=== PATIENT | female | born 1980 | race Caucasian/White ===

== ENCOUNTER 2017-02-13 13:21 | Observation (INO) ==
[2017-02-13] MEDS ORDERED: *HR* HYDROmorphone (PF) 1 MG/ML SYRINGE IVP ONE ×2 (13:51→17:44)
[2017-02-13] MEDS ORDERED: Ondansetron 4 MG/2 ML VIAL IVP ONE (13:51)
[2017-02-13 14:00] LABS: Bilirubin,Urine Negative (Negative); Blood,Urine Trace (Negative); Clarity,Urine Clear (Clear); Color,Urine Yellow (Yellow); Glucose,Urine (UA) Normal (Normal); Ketones,Urine Negative (Negative); Leukocyte Esterase,Urine Negative (Negative); Nitrite,Urine Negative (Negative); Protein,Urine Negative (Neg-Trace); Specific Gravity,Urine 1.029 (1.010-1.025); Urobilinogen,Urine Normal (Normal)
[2017-02-13 14:02] LABS: Bacteria,Urine Moderate per hpf (None-Few); Hyaline Casts,Urine None Seen per lpf (None-Few); Squamous Epithelial Cell,Urine Many per lpf (None-Few); WBC,Urine 0-3 per hpf (0-3)
[2017-02-13 14:06] LABS: Basophils # 0.1 K/mcL (0.0-0.2); Basophils % 0.7 %; Eosinophils # 0.1 K/mcL (0.0-0.6); Eosinophils % 1.9 %; Hematocrit 36.4 % (35.3-44.9); Hemoglobin 12.3 g/dL (11.5-15.4); Immature Granulocytes % 0.3 % (0-4); Lymphocytes # 1.9 K/mcL (0.6-4.6); Lymphocytes % 25.7 %; Mean Corpuscular HGB Conc 33.8 g/dL (31.6-35.5); Mean Corpuscular Hemoglobin 31.3 pg (28.0-33.3); Mean Corpuscular Volume 92.6 fL (83.0-100.0); Mean Platelet Volume 9.3 fL (9.4-12.4); Monocytes # 0.7 K/mcL (0.0-1.3); Monocytes % 8.8 %; Neutrophils # 4.7 K/mcL (1.6-8.9); Platelet Count 286 K/mcL (140-400); Red Blood Count 3.93 M/mcL (3.82-4.97); Red Cell Distribution Width 13.1 % (11.5-14.5); Segmented Neutrophils % 62.6 %
[2017-02-13 14:21] LABS: Alanine Aminotransferase 11 Units/L (0-55); Albumin 3.4 g/dL (3.5-5.0); Albumin/Globulin Ratio 1.1 (1.1-2.2); Alkaline Phosphatase 42 Units/L (38-126); Aspartate Amino Transferase 13 Units/L (5-34); BUN/Creatinine Ratio 16 (6-26); Bilirubin,Direct 0.2 mg/dL (0.0-0.5); Bilirubin,Indirect 0.3 mg/dL (0.0-1.2); Bilirubin,Total 0.5 mg/dL (0.2-1.2); Blood Urea Nitrogen 12 mg/dL (7-20); Calcium 8.8 mg/dL (8.6-10.8); Carbon Dioxide 24 mEq/L (19-29); Chloride 108 mEq/L (98-109); Globulin 3.2 g/dL (2.4-3.5); Glucose 93 mg/dL (70-99); Lipase 31 Units/L (8-78); Osmolality,Calculated 283 (280-300); Sodium 137 mEq/L (136-145); Total Protein 6.6 g/dL (6.0-8.3); eGFR For African Americans > 60 (> 60); eGFR For Non-African Americans > 60 (> 60)
--- NOTE | 2017-02-13 15:20 | Emergency Department Note ---
Disposition Clinical Impression: Flank pain, Hydroureter, Hydronephrosis due to obstruction of ureter, Ovarian cyst Disposition: Admitted As Inpatient Condition: Good Referrals: Titus Delacruz DO [Primary Care Provider] - Forms: Work/School Release, ED Satisfaction Letter Time of Disposition: 17:28 Abdominal Pain HPI - General Chief Complaint: ED Abdominal Pain Stated Complaint: Right flank pain Time Seen by Provider: 02/13/17 13:24 Source: patient, family () Mode of arrival: ambulatory Limitations: no limitations Nursing Notes Reviewed: Yes Vital Signs Reviewed: Yes - History of Present Illness HPI Narrative: 36-year-old female history of residual endometriosis presents with right flank pain. States this is the similar pain she experienced 2 years ago where she had ovarian cysts collapsing on her ureter. Pain was worse yesterday and was seen and evaluated at [facility] for pain management. CT of the abdomen and pelvis was performed shows consistent findings from 2 years ago. At that time Dr. Conteh and Dr. Gerber place a stent in her ureter she believes that she may need it again. She denies any fever, nausea, vomiting. She has noticed some decreased urine output and trickling of urine but no dysuria. About a month ago when she started experiencing some of this pain she was seen and evaluated by Dr. Conteh and given Luporon to try to shrink the ovarian cysts which is likely a endometrial mother. She had had success several years ago prior to the stent. History of 2 partial hysterectomies. She continues to have severe sharp pain. Will attempt to obtain records from outside hospital as well as images. Will get baseline labs in the function with urinalysis. Dilaudid for pain at this time. Patients in agreement with this plan. Pain Scale: 6 - Related Data Allergies Allergy/AdvReac Type Severity Reaction Status Date / Time No Known Allergies Allergy Verified 02/13/17 13:25 All systems ED: reviewed and negative except as stated. Review of Systems: As Per HPI Constitutional: Denies: fever, chills Cardiovascular: Denies: chest pain Respiratory: Denies: cough, dyspnea Gastrointestinal: Reports: nausea. Denies: abdominal pain, vomiting, diarrhea, melena, hematochezia Genitourinary: Reports: urgency. Denies: dysuria Musculoskeletal: Reports: back pain. Denies: neck pain Integumentary: Denies: rash, abrasion Abdominal Pain PMH - Past Medical History Medical history: Reports: no medical history Female Surgical History: Reports: hysterectomy - Social History Smoking status: Never smoker Alcohol use: Reports: none Drug use: Reports: none Physical Exam - General Limitations: no limitations General appearance: alert, in no apparent distress - Head Head exam: atraumatic, normocephalic, normal inspection - Eye Eye exam: Present: normal appearance, PERRL, EOMI - ENT ENT exam: normal exam, normal oropharynx, mucous membranes moist - Neck Neck exam: Present: normal inspection, full ROM, trachea midline - Chest Chest inspection: Present: normal inspection, symmetric chest wall rise - Respiratory Respiratory exam: Present: normal lung sounds bilaterally - Cardiovascular Cardiovascular exam: Present: regular rate, normal rhythm, normal heart sounds - Abdominal Exam Abdominal exam: Present: soft, normal bowel sounds. Absent: Non-Tender, tenderness, distention, guarding, rebound, rigidity Abdominal tenderness: Present: RUQ, RLQ, diffuse, mild - Back Exam Back exam: Present: normal inspection, full ROM, CVA tenderness (R). Absent: tenderness, CVA tenderness (L) - Neurological Exam Neurological exam: Present: alert, oriented X3 - Psychiatric Psychiatric exam: Present: normal affect, normal mood - Skin Skin exam: Present: warm, dry, intact, normal color Course - Reevaluation(s) Reevaluation #1: I was informed that Dr. Conteh is aware of patient here. Dr. Conteh has contacted Dr. Thurman to come see the patient. CT of the abdomen and pelvis without contrast was performed 02/13/2017 at 0009, the impression states moderate right hydronephrosis and Daniel ureter. No obstructing ureteral calculus. The dilated ureter tapers at the prominent right presumed ovarian cystic lesion which is similar in size to the prior exam 02/09/2015. It measures 3.9 x 3.8 x 3.4 cm there is also chronic fat stranding in the region. Reevaluation #2: Patient's pain has been well-controlled with dilaudid. She states her pain went from a 9 of 10 to 2 of 10. Review for labs are unremarkable. No findings of acute kidney injury. Normal creatinine function. Myself as well as Dr. Thurman and my attending Dr. Lay have reviewed the CT images personally as well as the report. Patient has been accepted by Dr. Thurman for observation and possible stenting. She has requested some more medication for pain and comfort. Additional Dilaudid ordered. Impression is flank pain, hydroureter, hydronephrosis, ovarian cysts. Time: 17:44 - Consultations Consultation #1: Dr. Conteh down at bedside to evaluate patient. Recommend to await Dr. Thurman recommendations for possible stent and placement. Time: 16:20 Consultation #2: Dr. Thurman is here at bedside to evaluate patient. Discuss possibility of admission and possible placement versus symptom control, will await final decision for management. Time: 17:02 Vital Signs Temperature 97.9 F 02/13/17 13:22 Pulse Rate 71 02/13/17 13:22 Respiratory Rate 18 02/13/17 13:22 Blood Pressure 117/84 02/13/17 13:22 O2 Sat by Pulse Oximetry 96 02/13/17 13:22 Temperature 97.9 F 02/13/17 13:22 Pulse Rate 71 02/13/17 13:22 Respiratory Rate 18 02/13/17 13:22 Blood Pressure 117/84 02/13/17 13:22 O2 Sat by Pulse Oximetry 96 02/13/17 13:22 Abdominal Pain - Medical Records Medical records reviewed: Yes I reviewed the patient's medical records. - Lab Data Lab results reviewed: Yes I reviewed the patient's lab results. Result diagrams: 02/13/17 14:01 02/13/17 14:01 Lab Results 02/13/17 02/13/17 02/13/17 Range/Units 13:38 13:38 14:01 WBC 7.5 (4.3-11.1) K/mcL RBC 3.93 (3.82-4.97) M/mcL Hgb 12.3 (11.5-15.4) g/dL Hct 36.4 (35.3-44.9) % MCV 92.6 (83.0-100.0) fL MCH 31.3 (28.0-33.3) pg MCHC 33.8 (31.6-35.5) g/dL RDW 13.1 (11.5-14.5) % Plt Count 286 (140-400) K/mcL MPV 9.3 L (9.4-12.4) fL Immature Gran % 0.3 (0-4) % Seg Neutrophils % 62.6 % Lymphocytes % 25.7 % Monocytes % 8.8 % Eosinophils % 1.9 % Basophils % 0.7 % Neutrophils # 4.7 (1.6-8.9) K/mcL Lymphocytes # 1.9 (0.6-4.6) K/mcL Monocytes # 0.7 (0.0-1.3) K/mcL Eosinophils # 0.1 (0.0-0.6) K/mcL Basophils # 0.1 (0.0-0.2) K/mcL Sodium (136-145) mEq/L Potassium (3.5-4.5) mEq/L Chloride (98-109) mEq/L Carbon Dioxide (19-29) mEq/L BUN (7-20) mg/dL Creatinine (0.57-1.11) mg/dL Est GFR ( Amer) (> 60) Est GFR (Non-Af Amer) (> 60) BUN/Creatinine Ratio (6-26) Glucose (70-99) mg/dL Calculated Osmolality (280-300) Calcium (8.6-10.8) mg/dL Total Bilirubin (0.2-1.2) mg/dL Direct Bilirubin (0.0-0.5) mg/dL Indirect Bilirubin (0.0-1.2) mg/dL AST (5-34) Units/L ALT (0-55) Units/L Alkaline Phosphatase (38-126) Units/L Serum Total Protein (6.0-8.3) g/dL Albumin (3.5-5.0) g/dL Globulin (2.4-3.5) g/dL Albumin/Globulin Ratio (1.1-2.2) Lipase (8-78) Units/L Urine Color Yellow (Yellow) Urine Clarity Clear (Clear) Urine pH 6.0 (5.0-8.0) pH Units Ur Specific [place] 1.029 H (1.010-1.025) Urine Protein Negative (Neg-Trace) mg/dL Urine Glucose (UA) Normal (Normal) mg/dL Urine Ketones Negative (Negative) mg/dL Urine Blood Trace H (Negative) Urine Nitrite Negative (Negative) Urine Bilirubin Negative (Negative) Urine Urobilinogen Normal (Normal) mg/dL Ur Leukocyte Esterase Negative (Negative) Urine Microscopic RBC 5-15 H (0-3) per hpf Urine Microscopic WBC 0-3 (0-3) per hpf Ur Squamous Epith Cells Many H (None-Few) per lpf Urine Bacteria Moderate H (None-Few) per hpf Hyaline Casts None Seen (None-Few) per lpf Ur Culture Indicated? NO (NO) Urine Test Negative (Negative) 02/13/17 Range/Units 14:01 WBC (4.3-11.1) K/mcL RBC (3.82-4.97) M/mcL Hgb (11.5-15.4) g/dL Hct (35.3-44.9) % MCV (83.0-100.0) fL MCH (28.0-33.3) pg MCHC (31.6-35.5) g/dL RDW (11.5-14.5) % Plt Count (140-400) K/mcL MPV (9.4-12.4) fL Immature Gran % (0-4) % Seg Neutrophils % % Lymphocytes % % Monocytes % % Eosinophils % % Basophils % % Neutrophils # (1.6-8.9) K/mcL Lymphocytes # (0.6-4.6) K/mcL Monocytes # (0.0-1.3) K/mcL Eosinophils # (0.0-0.6) K/mcL Basophils # (0.0-0.2) K/mcL Sodium 137 (136-145) mEq/L Potassium 4.0 (3.5-4.5) mEq/L Chloride 108 (98-109) mEq/L Carbon Dioxide 24 (19-29) mEq/L BUN 12 (7-20) mg/dL Creatinine 0.76 (0.57-1.11) mg/dL Est GFR ( Amer) > 60 (> 60) Est GFR (Non-Af Amer) > 60 (> 60) BUN/Creatinine Ratio 16 (6-26) Glucose 93 (70-99) mg/dL Calculated Osmolality 283 (280-300) Calcium 8.8 (8.6-10.8) mg/dL Total Bilirubin 0.5 (0.2-1.2) mg/dL Direct Bilirubin 0.2 (0.0-0.5) mg/dL Indirect Bilirubin 0.3 (0.0-1.2) mg/dL AST 13 (5-34) Units/L ALT 11 (0-55) Units/L Alkaline Phosphatase 42 (38-126) Units/L Serum Total Protein 6.6 (6.0-8.3) g/dL Albumin 3.4 L (3.5-5.0) g/dL Globulin 3.2 (2.4-3.5) g/dL Albumin/Globulin Ratio 1.1 (1.1-2.2) Lipase 31 (8-78) Units/L Urine Color (Yellow) Urine Clarity (Clear) Urine pH (5.0-8.0) pH Units Ur Specific [place] (1.010-1.025) Urine Protein (Neg-Trace) mg/dL Urine Glucose (UA) (Normal) mg/dL Urine Ketones (Negative) mg/dL Urine Blood (Negative) Urine Nitrite (Negative) Urine Bilirubin (Negative) Urine Urobilinogen (Normal) mg/dL Ur Leukocyte Esterase (Negative) Urine Microscopic RBC (0-3) per hpf Urine Microscopic WBC (0-3) per hpf Ur Squamous Epith Cells (None-Few) per lpf Urine Bacteria (None-Few) per hpf Hyaline Casts (None-Few) per lpf Ur Culture Indicated? (NO) Urine Test (Negative) - Radiology Data Radiology results reviewed: Yes I reviewed the patient's radiology results. I personally reviewed the CT images as well as radiologist report. CT of the abdomen and pelvis without contrast was performed 02/13/2017 at 0009, the impression states moderate right hydronephrosis and Daniel ureter. No obstructing ureteral calculus. The dilated ureter tapers at the prominent right presumed ovarian cystic lesion which is similar in size to the prior exam 02/09/2015. It measures 3.9 x 3.8 x 3.4 cm there is also chronic fat stranding in the region.
--- NOTE | 2017-02-13 15:55 | Emergency Department Note ---
START Narrative - START START: I examined this patient and my medical decision-making was reviewed with the Resident Physician. I agree with the documented findings, disposition and treatment plan as described except to the extent set forth below. Patient with history and ovarian cyst that caused urinary obstruction. It appears this case that happening again on her CT scan. We will consult with urology for possible stent placement. OB is also following with Dr. Conteh.
[2017-02-13] MEDS ORDERED: Acetaminophen 325 MG TABLET PO PRN ×2 (17:40→18:00)
[2017-02-13] MEDS ORDERED: Ondansetron 4 MG/2 ML VIAL IVP PRN ×2 (17:40→18:01)
[2017-02-13] MEDS ORDERED: *HR* OxyCODONE/APAP 5/325 TABLET PO PRN (17:40)
[2017-02-13] MEDS ORDERED: *HR* HYDROmorphone (PF) 1 MG/ML SYRINGE IVP PRN (17:40)
[2017-02-13] MEDS ORDERED: Naloxone 0.4 MG/ML INJ IVP PRN (17:40)
[2017-02-13] MEDS ORDERED: *HR* Promethazine 25 MG/ML VIAL IVP PRN ×2 (17:40→18:01)
--- NOTE | 2017-02-13 17:47 | Urology History & Physical ---
Date of Encounter: 02/13/17 Time of Encounter: 17:45 Assessment and Plan (1) Hydronephrosis due to obstruction of ureter Current Visit: Yes Status: Acute 36-year-old woman with a history right hydronephrosis secondary to cyst causing obstructon of the right ureter. I will admit her for pain control. I discussed proceeding with a cystoscopy and right ureteral stent placement. We also discussed a right nephrostomy tube. I also discussed observation and giving her some time to see how she does after the leuprolide injection. At this point she like to be admitted for observation and a trial of oral pain medication. If her pain is adequately controlled in the morning, we will then consider discharge home with close follow-up and repeat ultrasound. If she has persistent hydronephrosis, we may need to proceed with replacement of the stent. We discussed surgical removal of this ovarian cyst which may be complicated given the location and proximity to the internal iliac vessels. History of Present Illness Chief complaint: Right flank pain HPI: Ms. Red is a 36 year old female who presents with right flank pain. She has an ovarian cyst on the right side which has led to external compression of the right ureter. She developed severe flank pain yesterday in the right side which was sharp and radiated to the groin. She was seen in an outside hospital and given pain medication. She then came to [place] for further care. She's been given IV pain medication and is feeling better. However she is concerned that the pain is escalating after the medication. She denies any fevers, chills, nausea, or emesis. She denies any urinary issues. In 2014 she had a similar episode and Dr. Gerber placed a stent. She has been given an injection of leuprolide. Past Med Surg Social Fam HX - Past Medical History Medical history: no medical history - Social History Smoking Status: Never smoker Smokeless Tobacco Status: No Alcohol use: none Drug use: none - Family History Father Hx Family Genitourinary Disorders: Yes (IGA nephropathy) Medications and Allergies Allergies No Known Allergies Allergy (Verified 02/13/17 13:25) Review of Systems - Constitutional no chills, no fever(s) - EENT Nose, mouth and throat: no dizziness - Cardiovascular no chest pain - Respiratory no dyspnea - Gastrointestinal no nausea, no vomiting - Genitourinary Genitourinary: flank pain, no hematuria - Musculoskeletal no back pain - Integumentary no erythema, no rash - Neurological no weakness - Psychiatric no suicidal ideation - Hematologic/Lymphatic no easy bleeding - Allergic/Immunologic no wheezing Exam Initial Vital Signs Temp Pulse Resp BP Pulse Ox 97.9 F 71 18 117/84 96 02/13/17 13:22 02/13/17 13:22 02/13/17 13:22 02/13/17 13:22 02/13/17 13:22 - General physical appearance Present: well developed, well nourished, no distress - Eyes Absent: icteric - ENT Present: normal nares - Neck Present: trachea midline - Respiratory Present: normal respiratory effort - Cardiovascular Cardiovascular exam IM: RRR - Abdomen Abdomen: Present: soft, tender (in right flank) Urology Results - Labs 02/13/17 14:01 02/13/17 14:01 Abnormal lab results MPV 9.3 fL (9.4-12.4) L 02/13/17 14:01 Albumin 3.4 g/dL (3.5-5.0) L 02/13/17 14:01 Ur Specific [place] 1.029 (1.010-1.025) H 02/13/17 13:38 Urine Blood Trace (Negative) H 02/13/17 13:38 Urine Microscopic RBC 5-15 per hpf (0-3) H 02/13/17 13:38 Ur Squamous Epith Cells Many per lpf (None-Few) H 02/13/17 13:38 Urine Bacteria Moderate per hpf (None-Few) H 02/13/17 13:38 All other labs normal. - Imaging CT scan - abdomen: image reviewed CT scan - pelvis: image reviewed
[2017-02-13] MEDS: 0.9 % Sodium Chloride 1,000 ML IVC SCH (18:54)
[2017-02-13] MEDS: *HR* OxyCODONE/APAP 5/325 TABLET PO PRN (21:11)
[2017-02-14] MEDS: *HR* OxyCODONE/APAP 5/325 TABLET PO PRN (00:53)
[2017-02-14] MEDS: 0.9 % Sodium Chloride 1,000 ML IVC SCH (04:22)
--- NOTE | 2017-02-14 07:09 | Discharge Summary ---
Date of Encounter: 02/14/17 Time of Encounter: 07:07 - Discharge Diagnosis (1) Hydronephrosis due to obstruction of ureter Priority: Primary Status: Acute - Discharge Medications Prescriptions: OxyCODONE/APAP 5/325 [Percocet 5/325 MG] 2 each PO Q4HR PRN #25 tab PRN Reason: moderate pain 6-10 Home Medications: Ibuprofen 800 mg PO TID PRN 02/13/17 [History] Leuprolide Acetate [Lupron Depot] 3.75 mg IJ QMONTH 02/13/17 [History] Norethindrone Acetate 5 mg PO DAILY 02/13/17 [History] OxyCODONE/APAP 5/325 [Percocet 5/325 MG] 2 each PO Q4HR PRN #25 tab 02/14/17 [Rx ] Allergies/Adverse Reactions: Allergies No Known Allergies Allergy (Verified 02/13/17 13:25) Date of admission: 02/13/17 17:32 Primary care physician: Titus Delacruz Discharging clinician: Librado Thurman Anticipated date of discharge: 02/14/17 - Patient Status Disposition: Home, Self-Care Condition: Good Functional capacity at discharge: independent ambulation Overall status at discharge: patient is progressing back to baseline - Discharge Instructions Follow Up With: Librado Thurman MD [Partnered Physician] - (in 2 weeks with a renal and bladder ultrasound prior.) Additional Instructions: 1. Increase activity as tolerated 2. Okay for tub baths. 3. May shower tomorrow. 4. She should follow up in 2 weeks for postoperative check with a ultrasound prior. 5. She should return for any fevers, chills, nausea, vomiting, or significant worsening of her pain. - Diet and Activity Activity: increase activity as tolerated - Hospital Course Hospital course: Ms. Red is a 36 year old female who presents with a history of right flank pain. A CT scan showed concern for a right ovarian cyst leading to external compression of the right ureter. She was admitted for pain control secondary to the hydronephrosis. Overnight, her pain was adequately controlled. She felt comfortable being discharged. - Time Spent with Patient Total time spent providing and/or coordinating discharge services: Less than 30 minutes Exam Initial Vital Signs Temp Pulse Resp BP Pulse Ox 97.9 F 71 18 117/84 96 02/13/17 13:22 02/13/17 13:22 02/13/17 13:22 02/13/17 13:22 02/13/17 13:22 - General physical appearance Present: well developed, well nourished, no distress - Eyes Absent: icteric - ENT Present: normal nares - Neck Present: trachea midline - Respiratory Present: normal respiratory effort - Cardiovascular Cardiovascular exam IM: RRR - Abdomen Abdomen: Present: soft - VTE Documentation of Mechanical Device: Intermittent pneumatic compression device
[2017-02-14 07:16] VITALS: BP 115/77
== END 2017-02-14 09:45 | disposition home or self-care (01) ==
LOC: EMEROO 13:21 → 3NENU 13:21
PROVIDERS: ADMIT Urology; ATTEND Urology

== ENCOUNTER 2018-06-01 10:51 | Observation (INO) ==
[2018-06-01] MEDS ORDERED: Isovue-370 500 ML INFUS..BTL IV ONE (11:59)
[2018-06-01] MEDS ORDERED: *HR* OxyCODONE Immed Rel 5 MG TABLET PO PRN (12:03)
--- NOTE | 2018-06-01 12:40 | OB/GYN History & Physical ---
Date of Encounter: 06/01/18 Time of Encounter: 12:37 Assessment and Plan (1) Acute pelvic pain, female Current visit: Yes Status: Acute We will try oxycodone immediate release if this does not work for her pain will discuss having a started on a Dilaudid [employer] since IV push is not available (2) Adnexal mass Current visit: Yes Status: Acute We will order CT with and without contrast of the abdomen and pelvis to evaluate this mass and possible hydronephrosis hydroureter, we will get urology consult, will order lab work estradiol creatinine to evaluate for possible obstruction. (3) History of endometriosis Current visit: Yes Status: Acute History of Present Illness HPI: Ms. Red is a 38 year old female who was sent in for direct admission secondary to severe pelvic pain with a 5 cm complex adnexal mass. 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 Patient last year sore a physician in [place] who performed a robotic resection of this endometrioma and what the patient states with removal of the ovarian remnant that had been left in place and she performed a trachelectomy at the same time. Patient was reassured at that time that she had normal ovarian tissue and has not had this problem. Patient states she started having pain again did follow up with that physician who thought she just had pelvic floor dysfunction and sent her for pelvic floor rehabilitation. The pain progressively got worse she is having similar pain that she had in the past and an ultrasound performed in the office today shows this complex mass. Patient was sent to the hospital for CT to rule out ureteral obstruction. The patient had blood work recently done. Her other physician and an estradiol level performed which was 55. Did inform her that that someone her body she is producing estrogen which is probably stimulating endometriosis. She was not placed on suppressive therapy. She has been on Lupron in the past she states the first round of shots worked well second round did not. She denies any hot flashes night sweats mood swings and is on no hormonal replacement therapy. Patient states the only thing that is worked in the past for the pain is IV Dilaudid did not form at this time that is not available due to the shortage we will try some oxycodone immediate release tabs at this time. A consultation has been placed with urology and has been notified. Did inform the patient that if she does have an obstruction she would need potentially a stent and she will probably need to be referred back to Dr Waite in [place]. She is going to require additional surgery Past Med Surg Social Fam HX - Past Medical History Source: patient, old records reviewed Medical history: no medical history Additional medical history: History of endometriosis Psychiatric history: no psych history - Past Surgical History Surgical History: other (Left salpingo-oophorectomy, abdominal right salpingo- oophorectomy lysis of adhesions, robotic lysis of adhesions, trachelectomy, appendectomy, and resection of endometrioma and removal of ovarian remnant) - Social History Smoking Status: Never smoker Smokeless Tobacco Status: No Alcohol use: none Drug use: none Occupational status: employed Current living situation: Home - Independent Activity Level: Independent ambulation Recent Out of Country Travel Within the Last 8 Weeks: No Exposure or Possible Exposure to Illness During Travel: No - Additional Family History Additional family history: Family history noncontributory at this time Obstetrical History - Pregnancies : 2 Para: 2 Livin Medications and Allergies Ibuprofen 800 mg PO TID PRN 02/13/17 [History] OxyCODONE/APAP 5/325 [Percocet 5/325 MG] 2 each PO Q4HR PRN #25 tab 02/14/17 [Rx] Bactrim 800MG/160MG/10ML 1 tab PO DAILY 06/01/18 [History] L.acidoph,Paracasei, B.lactis [Probiotic] 1 tab PO DAILY 06/01/18 [History] Allergy/AdvReac Type Severity Reaction Status Date / Time No Known Allergies Allergy Verified 06/01/18 12:03 Review of System OB All systems PM: reviewed and no additional remarkable complaints except as stated - Genitourinary Genitourinary: other (severe RLQ pain) Exam - Vital Signs Vital signs: Initial Vital Signs Temp Pulse Resp BP Pulse Ox 97.8 F 85 14 122/81 98 06/01/18 12:04 06/01/18 12:04 06/01/18 12:04 06/01/18 12:04 06/01/18 12:04 - Constitutional Constitutional: well developed, well nourished, average body habitus, moderate distress - HEENT HEENT: EOMI, PERRL, Mucus Membranes Moist - Neck Neck exam: full ROM - Lungs Respiratory exam: CTAB - Cardiovascular Cardiovascular exam: RRR - Abdomen Abdomen: Present: diffuse tenderness (with pin point tenderness RLQ) Results All other labs normal. - VTE Reasons for not Prescribing Prophylaxis: Treatment not Indicated - Low risk for VTE
[2018-06-01 12:55] LABS: Basophils # 0.1 K/mcL (0.0-0.2); Eosinophils # 0.1 K/mcL (0.0-0.6); Eosinophils % 1.2 %; Hematocrit 39.7 % (35.3-44.9); Hemoglobin 13.8 g/dL (11.5-15.4); Immature Granulocytes % 0.2 % (0-4); Lymphocytes % 39.5 %; Mean Corpuscular HGB Conc 34.8 g/dL (31.6-35.5); Mean Corpuscular Hemoglobin 31.4 pg (28.0-33.3); Mean Corpuscular Volume 90.2 fL (83.0-100.0); Mean Platelet Volume 9.8 fL (9.4-12.4); Monocytes # 0.6 K/mcL (0.0-1.3); Monocytes % 12.6 %; Neutrophils # 2.3 K/mcL (1.6-8.9); Platelet Count 312 K/mcL (140-400); Segmented Neutrophils % 45.5 %
[2018-06-01] MEDS: Ringers Solution, Lactated 1,000 ML IVC SCH ×2 (13:01→19:51)
[2018-06-01 13:12] LABS: BUN/Creatinine Ratio 16 (6-26); Blood Urea Nitrogen 12 mg/dL (6-20); Calcium 9.2 mg/dL (8.6-10.3); Carbon Dioxide 22 mEq/L (23-29); Chloride 107 mEq/L (98-107); Glucose 92 mg/dL (70-105); Osmolality,Calculated 281 (280-300); Sodium 136 mEq/L (136-145); eGFR For Non-African Americans > 60 (> 60)
[2018-06-01] MEDS ORDERED: *HR* HYDROmorphone 20 MG/20 ML PCA IVC PRN (16:31)
--- NOTE | 2018-06-01 16:44 | OB/GYN Progress Note ---
Date of Encounter: 06/01/18 Time of Encounter: 16:36 - Assessment and Plan (1) Acute pelvic pain, female Current Visit: Yes Status: Acute We will try oxycodone immediate release if this does not work for her pain will discuss having a started on a Dilaudid [employer] since IV push is not available (2) Adnexal mass Current Visit: Yes Status: Acute We will order CT with and without contrast of the abdomen and pelvis to evaluate this mass and possible hydronephrosis hydroureter, we will get urology consult, will order lab work estradiol creatinine to evaluate for possible obstruction. (3) History of endometriosis Current Visit: Yes Status: Acute Subjective - Subjective Interval history: Patient still having moderate amount of discomfort oral pills not helping, CT scan was discussed with radiologist there is no ureteral obstruction she either has a hemorrhagic cyst or an endometrioma on the right side approximate 5 cm. Lab work does confirm she is producing estrogen Which means she must have some ovarian remnant still present, we will go ahead and cancel urology consult since there is no obstruction we will place patient on regular diet and switch over to a Dilaudid [employer]. 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 Patient reports: pain poorly controlled Objective - Vital Signs Latest vital signs: Vital Signs Temp Pulse Resp BP Pulse Ox 06/01/18 12:04 97.8 F 85 14 122/81 98 Intake and Output 06/01/18 06/01/18 06/01/18 07:59 15:59 23:59 Other: Weight 75.4 kg Patient Weight 06/01/18 23:59 Weight 75.4 kg - I&O's I&O's: Intake & Output 05/29/18 05/30/18 05/31/18 06/01/18 23:59 23:59 23:59 23:59 Weight 75.4 kg - Exam Lungs: bilateral: normal Chest: Normal S1, Normal S2 Abdomen: Present: tenderness (rlq) - Labs Labs: Abnormal lab results Carbon Dioxide 22 mEq/L (23-29) L 06/01/18 Unknown Consult Discharge Plan - Plan Referrals: Nidia Delacruz, D[employer] [Primary Care Provider] -
[2018-06-02] MEDS: Ringers Solution, Lactated 1,000 ML IVC SCH (03:32)
--- NOTE | 2018-06-02 08:38 | Discharge Summary ---
Date of Encounter: 06/02/18 Time of Encounter: 08:36 - Discharge Diagnosis (1) Adnexal mass Priority: Primary Status: Acute Comments: Feeling well Pain well controlled with WEED ERADICATOR - confident that PO pain meds will help Increase activity as tolerated Regular diet Follow up with Dr. Wero AGUILAR Follow up with Dr. Waite Discharge home today - Discharge Medications Prescriptions: OxyCODONE/APAP 5/325 [Percocet 5/325 MG] 1 each PO Q4HR PRN 7 Days #25 tab PRN Reason: moderate pain 6-10 Home Medications: Ibuprofen 800 mg PO TID PRN 02/13/17 [History] Bactrim 800MG/160MG/10ML 1 tab PO DAILY 06/01/18 [History] L.acidoph,Paracasei, B.lactis [Probiotic] 1 tab PO DAILY 06/01/18 [History] OxyCODONE/APAP 5/325 [Percocet 5/325 MG] 1 each PO Q4HR PRN 7 Days #25 tab [Rx] Allergies/Adverse Reactions: Allergy/AdvReac Type Severity Reaction Status Date / Time No Known Allergies Allergy Verified 06/01/18 12:03 Data Procedures and tests throughout hospitalization: Laboratory Tests 06/01/18 06/01/18 06/01/18 Unknown Unknown Unknown WBC 5.0 RBC 4.40 Hgb 13.8 Hct 39.7 MCV 90.2 MCH 31.4 MCHC 34.8 RDW 13.0 Plt Count 312 MPV 9.8 Immature Gran % 0.2 Seg Neutrophils % 45.5 Lymphocytes % 39.5 Monocytes % 12.6 Eosinophils % 1.2 Basophils % 1.0 Neutrophils # 2.3 Lymphocytes # 2.0 Monocytes # 0.6 Eosinophils # 0.1 Basophils # 0.1 Sodium 136 Potassium 4.0 Chloride 107 Carbon Dioxide 22 L BUN 12 Creatinine 0.76 Est GFR ( Amer) > 60 Est GFR (Non-Af Amer) > 60 BUN/Creatinine Ratio 16 Glucose 92 Calculated Osmolality 281 Calcium 9.2 Estradiol (E2) Level 51 Labs on day of discharge: Labs from last 24 hours 06/01/18 06/01/18 06/01/18 Unknown Unknown Unknown WBC 5.0 RBC 4.40 Hgb 13.8 Hct 39.7 MCV 90.2 MCH 31.4 MCHC 34.8 RDW 13.0 Plt Count 312 MPV 9.8 Immature Gran % 0.2 Seg Neutrophils % 45.5 Lymphocytes % 39.5 Monocytes % 12.6 Eosinophils % 1.2 Basophils % 1.0 Neutrophils # 2.3 Lymphocytes # 2.0 Monocytes # 0.6 Eosinophils # 0.1 Basophils # 0.1 Sodium 136 Potassium 4.0 Chloride 107 Carbon Dioxide 22 L BUN 12 Creatinine 0.76 Est GFR ( Amer) > 60 Est GFR (Non-Af Amer) > 60 BUN/Creatinine Ratio 16 Glucose 92 Calculated Osmolality 281 Calcium 9.2 Estradiol (E2) Level 51 - Impressions ITS Impressions Abdomen/Pelvis CT 06/01/18 11:59 IMPRESSION: 1. A 5 cm right adnexal cyst with sonographic characteristics on the pelvic ultrasound from 06/01/2018 most compatible with an endometrioma. Follow-up ultrasound in 6-12 weeks is recommended as per best practice guidelines. 2. No evidence of obstructive uropathy at this time. 3. Cholesterol gallstones without evidence of acute cholecystitis. Results were called by Dr. Eric Trejo to [facility] on 06/01/2018 at 15:29. D/ / 06/01/2018 15:09:41 Eric Trejo / [email or web address] Interpreting Provider: Eric Trejo Date of admission: 06/01/18 11:41 Primary care physician: Nidia Delacruz CNP Discharging clinician: Katty Almazan Anticipated date of discharge: 06/02/18 - Patient Status Disposition: Home, Self-Care Condition: Good Functional capacity at discharge: independent ambulation Overall status at discharge: patient is progressing back to baseline - Discharge Instructions Follow Up With: Nidia Delacruz CNP [Primary Care Provider] - Yassine Conteh MD [Partnered Physician] - - Diet and Activity Activity: increase activity as tolerated Diet: regular diet Hospital Course 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 Red is a 38-year-old female who is admitted for pain control secondary to a 5 cm adnexal mass. She was given oxycodone immediate release without relief. Pain was finally relieved with WEED ERADICATOR pump. Follow-up needs to be scheduled with Dr. Conteh as soon as possible. Consultation has been put into Dr. 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 Patient verbalizes understanding of discharge instructions and readiness to go home with outpatient pain control therapy. Time Attestation: Total time spent providing and/or coordinating discharge services: Time Spent: Less than 30 minutes Exam - Constitutional Vitals: Temp Pulse Resp BP Pulse Ox 97.8 F 76 18 97/64 97 06/02/18 04:00 06/02/18 04:00 06/02/18 04:00 06/02/18 04:00 06/02/18 04:00 General appearance IM: A&O X 3 - Respiratory Respiratory exam: Present: CTAB - Cardiovascular Cardiovascular exam IM: Present: RRR, +S1, +S2 - GI/Abdominal GI/Abdominal exam IM: normal bowel sounds, no peritoneal signs - Rectal Rectal exam: deferred - Extremities Exam Extremities exam IM: Present: normal capillary refill, normal inspection, radial pulses palpable and symmetrical - Neurological Exam Neurological exam: alert, CN II-XII intact, normal gait, oriented X3, reflexes normal, no focal deficits, strengths equal and symetr throughout - VTE Reasons for not Prescribing Prophylaxis: Treatment not Indicated - Low risk for VTE
[2018-06-02 08:42] VITALS: BP 105/72
== END 2018-06-02 11:16 | disposition home or self-care (01) ==
LOC: 1NENUOBS
PROVIDERS: ADMIT Obstetrics & Gynecology; ATTEND Obstetrics & Gynecology